=== PATIENT | female | born 1990 | race Caucasian/White ===

== ENCOUNTER 2019-09-01 22:12 | Emergency (ER) | payer OTHER ==
[~2019-09-01] VITALS: Ht 165.1 cm; Wt 61.2 kg
[2019-09-01] MEDS ORDERED: ZOVIRAX200 MG PO (22:26)
[2019-09-01 22:33] LABS: URINE BILIRUBIN NEGATIVE (Negative); URINE BLOOD NEGATIVE (Negative); URINE CLARITY CLEAR; URINE COLOR YELLOW; URINE GLUCOSE-RANDOM NEGATIVE (Negative); URINE KETONES 1+ (Negative); URINE LEUKOCYTES-REFLEX NEGATIVE (Negative); URINE NITRITE-REFLEX NEGATIVE (Negative); URINE PROTEIN TRACE (Negative)
[2019-09-01 22:38] LABS: HEMATOCRIT 38.2 % (37.0-47.0); MCH 31.5 pg (26.0-34.0); MCHC 34.1 g/dL (28.0-37.0); MCV 92.5 fL (80.0-100.0); MPV 8.1 fl. (7.2-11.1); NUCLEATED RBCS 0 /100WBC; PLATELET COUNT* 346 thou/uL (150-400); RBC 4.13 mil/uL (4.20-5.00); RDW-CV 13.2 % (10.5-14.5); WBC 14.7 thou/uL (4.0-11.0)
[2019-09-01 22:46] LABS: CALCIUM 9.6 mg/dL (8.5-10.1); CREATININE 0.6 mg/dL (0.6-1.3); POTASSIUM 3.7 mmol/L (3.5-5.1)
[2019-09-01 22:50] LABS: ALBUMIN 3.9 g/dL (3.4-5.0); TOTAL BILIRUBIN 0.2 mg/dL (<0.1-1.0); TOTAL PROTEIN 7.7 g/dL (6.4-8.2)
[2019-09-01 22:54] LABS: ABSOLUTE LYMPHOCYTES 1.2 thou/uL (0.8-5.3); ABSOLUTE MONOCYTES 0.1 thou/uL (0.0-1.2); ABSOLUTE NEUTROPHILS 13.4 thou/uL (1.6-8.1)
[2019-09-01 22:55] LABS: PLATELET ESTIMATE ADEQUATE
[2019-09-02] MEDS ORDERED: ZOFRAN ODT4 MG DISSOLVE (02:08)
[2019-09-02] MEDS ORDERED: NORCO 5-325 TA1 EAC1 PO (02:08)
[2019-09-02 02:25] VITALS: BP 120/80
== END 2019-09-02 02:25 | disposition home or self-care (01) ==
LOC: M.ERS 22:12
PROVIDERS: Emergency Medicine Emergency Medical Services
DX: O26.891 Other specified pregnancy related conditions, first trimester (principal); R10.32 Left lower quadrant pain; R10.12 Left upper quadrant pain; Z3A.08 8 weeks gestation of pregnancy